=== PATIENT | male | born 1975 | race Caucasian/White ===

== ENCOUNTER 2017-12-27 12:05 | Emergency (ER) | payer OTHER, SELFPAY ==
[2017-12-27 12:09] VITALS: BP 138/90; PULSE 92; RESP 16; TEMP 36.6; O2SAT 98; BMI 28.0
[2017-12-27 13:10] VITALS: BP 131/87; PULSE 77; RESP 15; O2SAT 98
--- NOTE | 2017-12-27 13:29 | ED_ITS ---
HPI - GI Bleed General Chief complaint: GI Bleed Stated complaint: POOPING BRIGHT RED BLOOD Time Seen by Provider: 12/27/17 13:28 Source: patient Mode of arrival: ambulatory Limitations: no limitations History of Present Illness HPI Narrative: 42 y/o male here for evaluation of approx 24 hours of BRBPR. he sates that he also has a hx of diverticulitis and does have some left sided abdominal pain. no fevers, no urinary sx, not painful to have BM's. has a hx of hemorrhoids but does not feel like that is what is gong on now. not on anticoagulation. Related Data Home Medications Medication Instructions Recorded Confirmed acetaminophen [Tylenol] 650 mg PO Q4HP #0 05/10/16 12/27/17 melatonin 5 mg PO HSP PRN #0 05/10/16 12/27/17 naproxen sodium [Aleve] 220 mg PO BID #0 05/10/16 12/27/17 calcium carbonate [Tums] 1 tab PO PRN PRN 12/27/17 12/27/17 calcium carbonate-mag hydroxid 1 tab PO PRN PRN 12/27/17 12/27/17 [Rolaids] Allergies Allergy/AdvReac Type Severity Reaction Status Date / Time bupropion [From WELLBUTRIN] Allergy Unknown MIGRAINE Unverified 06/28/17 12:12 Review of Systems Constitutional Denies fatigue, Denies fever(s) and Denies headache(s) ENT Ears, Nose, Mouth, and Throat: Denies vertigo, Denies dizziness and Denies headache(s) Cardiovascular Denies chest pain and Denies dyspnea Respiratory Denies dyspnea Gastrointestinal Gastrointestinal: Reports abdominal pain, Reports hematochezia, Denies cramping , Denies diarrhea, Denies nausea and Denies vomiting Genitourinary Denies dysuria Integumentary/Breasts Denies pruritus Neurologic Denies confusion, Denies vertigo, Denies dizziness and Denies headache(s) Psychiatric Denies confusion Endocrine Denies fatigue Hematologic/Lymphatic Denies easy bleeding and Denies easy bruising PFSH Surgical History History of third molar tooth extraction Status post myringotomy with insertion of tube Status post tonsillectomy and adenoidectomy Family History Child Age: 9 Autistic disorder, active Grandfather Age: 89 Heart disease Social History Smoking Status: Current every day smoker Exam Initial Vital Signs Initial Vital Signs: Vital Signs Temperature 97.9 F 12/27/17 12:09 Pulse Rate 92 H 12/27/17 12:09 Respiratory Rate 16 12/27/17 12:09 Blood Pressure 138/90 12/27/17 12:09 Pulse Oximetry 98 12/27/17 12:09 Const General: cooperative, healthy appearing, comfortable, well developed, well groomed and No acute distress Orientation: alert, awake and oriented x3 HENMT Head: normal to inspection and normocephalic Resp Effort & Inspection: normal respiratory effort Auscultation: clear to auscultation bilaterally Cardio Rate: regular rate Rhythm: regular rhythm GI Inspection: non-distended Palpation: soft, No firm and No tender Rectal Exam: visual inspection normal, normal sphincter tone, No abnormal stool , No fecal impaction, No fissure, heme positive stool and No lesions Skin Lesions: no lesions Rashes: no rashes Neuro General: alert, awake and oriented x3 Extrem General: normal to inspection and capillary refill normal Course Orders Ordered: Discontinued Medications Sodium Chloride (Normal Saline 0.9%) 1,000 mls @ 1,000 mls/hr IV BOLUS ONE Stop: 12/27/17 14:43 Last Infusion: 12/27/17 15:13 Dose: 0 mls/hr Admin: 12/27/17 14:03 Dose: 1,000 mls/hr Vital Signs - 8 hr 12/27/17 12:09 12/27/17 13:10 Temperature 97.9 F Pulse Rate 92 H 77 Respiratory Rate 16 15 Blood Pressure 138/90 Blood Pressure [Right Arm] 131/87 Pulse Oximetry 98 98 MDM - GI Bleed Lab Data Attestation: I reviewed the patient's lab results. Result diagrams: 12/27/17 13:53 12/27/17 13:53 Lab Results 12/27/17 12/27/17 Range/Units 13:53 13:53 WBC 9.5 (4.5-11.0) X10^3/uL RBC 5.10 (4.5-5.9) X10^6/uL Hgb 16.0 (13.5-17.5) g/dL Hct 46.4 (41-53) % MCV 90.9 (80-100) fL MCH 31.3 (26-34) PG MCHC 34.4 (30-36) % RDW 12.9 (11.6-14.8) % Plt Count 216 (150-400) X10^3/uL Neut % (Auto) 59.7 (50-75) % Lymph % (Auto) 29.5 (25-40) % [place] % (Auto) 6.1 (3-14) % Eos % (Auto) 4.2 H (2-4) % Baso % (Auto) 0.5 (0-2) % Neut # (Auto) 5700 (0900-8911) /uL Sodium 143 (137-145) mmol/L Potassium 3.7 (3.4-5.1) mmol/L Chloride 105 (98-107) mmol/L Carbon Dioxide 27 (22-32) mmol/L BUN 14 (9-20) mg/dL Creatinine 0.60 L (0.66-1.25) mg/dL Estimated GFR > 60.0 (>60) mL/min BUN/Creatinine Ratio 23.3 H (6-22) Glucose 92 (70-100) mg/dL Calcium 9.5 (8.4-10.2) mg/dL Total Bilirubin 0.7 (0.2-1.3) mg/dL AST 31 (17-59) IU/L ALT 38 (21-72) IU/L Alkaline Phosphatase 72 (38-126) U/L Total Protein 7.3 (6.3-8.2) g/dL Albumin 4.6 (3.5-5.0) g/dL Globulin 2.7 (1.7-4.1) g/dL Albumin/Globulin Ratio 1.7 (1.0-2.8) Lipase 85 (23-300) U/L Imaging Data CT scan - abdomen: Radiologist's impression: PROCEDURE: CT ABDOMEN PELVIS W CON INDICATIONS: Lower abdominal plain with rectal bleeding TECHNIQUE: After the administration of intravenous contrast, 5 mm thick sections acquired from the diaphragm to the symphysis. 5 mm coronal and sagittal reformats were acquired. For radiation dose reduction, the following was used: automated exposure control, adjustment of mA and/or kV according to patient size. COMPARISON: None. FINDINGS: Image quality: Excellent. ABDOMEN: Lung bases: Lung bases are clear. Heart size is normal. Solid organs: Liver is normal in size and enhancement. Gallbladder appears normal. Biliary system is non dilated. Pancreas enhances normally. Spleen is normal in size and enhancement. No adrenal nodules. Kidneys demonstrate normal size and enhancement, without hydronephrosis. Peritoneum and bowel: Bowel loops demonstrate normal wall thickness and caliber. No free fluid or air. Nodes and vessels: No retroperitoneal or mesenteric adenopathy by size criteria. Aorta and inferior vena cava are normal in size. Miscellaneous: No ventral hernias. PELVIS: Genitourinary: Bladder wall thickness is normal. Miscellaneous: No inguinal hernias or adenopathy. Sigmoid diverticulosis without acute diverticulitis. Bones: No suspicious bony lesions. No vertebral body compression fractures. IMPRESSION: Sigmoid diverticulosis without acute diverticulitis. Dictated by: Markell Gloria M.D. on 12/27/2017 at 14:56 Approved by: Markell Gloria M.D. on 12/27/2017 at 14:[address] [facility] Narrative Medical decision making narrative: has a benigh abd, non-toxic, not febrile, has diverticulosis but no diverticvulitis. has a soft ABD, I suspect a diverticular bleed, no indication for urgent surgical consult, discussed this with the patient. We discussed return precautions , no indication for ABX. pt was instructed to talk with his primary care provider to discuss indications for sope. he expressed understanding and agreement with plan. Discharge Plan Departure Patient Disposition: Home Clinical Impression: Rectal bleeding, Diverticulosis Discharge Date/Time: 12/27/17 15:24 Interventions: ED Discharge Assessment Last Done: 12/27/17 15:23 Instructions: DI for Rectal Bleeding, DI for Diverticulosis Activity Restrictions/Additional Instructions: Recommend that you contact your insurance company to establish care with a primary care doctor. Return to the emergency department for any new or worsening symptoms Prescriptions: No Action acetaminophen [Tylenol] 325 mg Tablet 650 mg PO Q4HP Qty: 0 RF: 0 naproxen sodium [Aleve] 220 MG capsule 220 mg PO BID Qty: 0 RF: 0 melatonin 5 MG tablet 5 mg PO HSP PRN (Reason: Sleep) Qty: 0 RF: 0 calcium carbonate-mag hydroxid [Rolaids] 550-110 mg Tablet,Chewable 1 tab PO PRN PRN (Reason: Acid Reflux) RF: 0 calcium carbonate [Tums] 200 mg calcium (500 mg) Tablet,Chewable 1 tab PO PRN PRN (Reason: Acid Reflux) RF: 0 Stand Alone Forms: Work/School Restrictions
--- NOTE | 2017-12-27 13:45 | DI.CT.S_ITS ---
PROCEDURE: CT ABDOMEN PELVIS W CON INDICATIONS: Lower abdominal plain with rectal bleeding TECHNIQUE: After the administration of intravenous contrast, 5 mm thick sections acquired from the diaphragm to the symphysis. 5 mm coronal and sagittal reformats were acquired. For radiation dose reduction, the following was used: automated exposure control, adjustment of mA and/or kV according to patient size. COMPARISON: None. FINDINGS: Image quality: Excellent. ABDOMEN: Lung bases: Lung bases are clear. Heart size is normal. Solid organs: Liver is normal in size and enhancement. Gallbladder appears normal. Biliary system is non dilated. Pancreas enhances normally. Spleen is normal in size and enhancement. No adrenal nodules. Kidneys demonstrate normal size and enhancement, without hydronephrosis. Peritoneum and bowel: Bowel loops demonstrate normal wall thickness and caliber. No free fluid or air. Nodes and vessels: No retroperitoneal or mesenteric adenopathy by size criteria. Aorta and inferior vena cava are normal in size. Miscellaneous: No ventral hernias. PELVIS: Genitourinary: Bladder wall thickness is normal. Miscellaneous: No inguinal hernias or adenopathy. Sigmoid diverticulosis without acute diverticulitis. Bones: No suspicious bony lesions. No vertebral body compression fractures. IMPRESSION: Sigmoid diverticulosis without acute diverticulitis. Dictated by: Markell Gloria M.D. on 12/27/2017 at 14:56 Approved by: Markell Gloria M.D. on 12/27/2017 at 14:58
[2017-12-27 14:00] VITALS: BP 140/88; PULSE 73; RESP 14; O2SAT 98
[2017-12-27 14:03] LABS: Add Manual Diff / Slide Review NO; Basophils Percent Auto 0.5 % (0-2); Eosinophils Percent Auto 4.2 % (2-4); Hematocrit 46.4 % (41-53); Lymphocytes Percent Auto 29.5 % (25-40); Mean Corpuscular HGB Conc 34.4 % (30-36); Mean Corpuscular Hemoglobin 31.3 PG (26-34); Mean Corpuscular Volume 90.9 fL (80-100); Monocytes Percent Auto 6.1 % (3-14); Neutrophils Absolute Auto 5700 /uL (3000-5900); Neutrophils Percent Auto 59.7 % (50-75); Platelet Count 216 X10^3/uL (150-400); Red Cell Distribution Width 12.9 % (11.6-14.8); White Blood Cell Count 9.5 X10^3/uL (4.5-11.0)
[2017-12-27] MEDS: SODIUM CHLORIDE 0.9% 1,000 ML 1000 ML IV (14:03)
[2017-12-27 14:15] LABS: Alanine Aminotransferase 38 IU/L (21-72); Albumin 4.6 g/dL (3.5-5.0); Albumin Globulin Ratio 1.7 (1.0-2.8); Alkaline Phosphatase 72 U/L (38-126); Aspartate Aminotransferase 31 IU/L (17-59); BUN Creatinine Ratio 23.3 (6-22); Bilirubin Total 0.7 mg/dL (0.2-1.3); Blood Urea Nitrogen 14 mg/dL (9-20); Calcium 9.5 mg/dL (8.4-10.2); Carbon Dioxide 27 mmol/L (22-32); Chloride 105 mmol/L (98-107); Estimated Glomerular Filt Rate > 60.0 mL/min (>60); Globulin 2.7 g/dL (1.7-4.1); Glucose 92 mg/dL (70-100); HEMOLYSIS < 15 (0-50); Lipase 85 U/L (23-300); Potassium 3.7 mmol/L (3.4-5.1); Sodium 143 mmol/L (137-145); Total Protein 7.3 g/dL (6.3-8.2)
== END 2017-12-27 15:24 | disposition home or self-care (01) ==
PROVIDERS: Emergency Provider Emergency Medicine
DX: K57.90 Diverticulosis of intestine, part unspecified, without perforation or abscess without bleeding (principal); K62.5 Hemorrhage of anus and rectum
CPT/HCPCS: 36591; 74177; 80053; 83690; 85025; 96360; 99283; 99285; Q9967

== ENCOUNTER 2018-05-28 12:31 | Emergency (ER) | payer OTHER, SELFPAY ==
--- NOTE | 2018-05-28 14:04 | PC.NURSE ---
not in wr when called 1400
== END 2018-05-28 14:27 | disposition left against medical advice (07) ==
PROVIDERS: Emergency Provider Emergency Medicine; Family Provider Family Medicine; PCP Family Medicine
CPT/HCPCS: 99281

== ENCOUNTER → 2018-05-29 12:26 | Outpatient (CLI) | payer OTHER, SELFPAY ==
--- NOTE | 2018-05-29 12:37 | DI.CT.S_ITS ---
PROCEDURE: CT ABDOMEN PELVIS W CON INDICATIONS: Bloody stools, lower abdominal pain, bloody stools TECHNIQUE: After the administration of intravenous contrast, 5 mm thick sections acquired from the diaphragm to the symphysis. 5 mm coronal and sagittal reformats were acquired. For radiation dose reduction, the following was used: automated exposure control, adjustment of mA and/or kV according to patient size. COMPARISON: [facility], CT, CT ABDOMEN PELVIS W CON, 12/27/2017, 14:33. FINDINGS: Image quality: Excellent. ABDOMEN: Lung bases: Lung bases are clear. Heart size is normal. Solid organs: Liver is normal in size and enhancement. Gallbladder appears normal. Biliary system is non dilated. Pancreas enhances normally. Spleen is normal in size and enhancement. No adrenal nodules. Kidneys demonstrate normal size and enhancement, without hydronephrosis. Peritoneum and bowel: Bowel loops demonstrate normal wall thickness and caliber. No free fluid or air. Nodes and vessels: No retroperitoneal or mesenteric adenopathy by size criteria. Aorta and inferior vena cava are normal in size. Miscellaneous: No ventral hernias. PELVIS: Genitourinary: Bladder wall thickness is normal. Miscellaneous: No inguinal hernias or adenopathy. Normal appendix right lower quadrant. Mild to moderate diverticulosis is present at the sigmoid colon. No acute diverticulitis is found, however. Bones: No suspicious bony lesions. No vertebral body compression fractures. IMPRESSION: Mild to moderate sigmoid diverticulosis, no definite acute diverticulitis. Normal appendix. A definite source of GI bleeding is not found by this examination. Specifically a malignant appearing colonic mass is not suspected. The study is limited by stool within the colon, however, but by current imaging chronic diverticulosis/episodic diverticulitis is considered a likely source of GI bleeding in this patient than underlying neoplasm. Dictated by: Markell Gloria M.D. on 05/29/2018 at 14:45 Approved by: Markell Gloria M.D. on 05/29/2018 at 14:47
[2018-05-29 13:19] LABS: Add Manual Diff / Slide Review NO; Basophils Absolute Auto 100 /uL (0-100); Basophils Percent Auto 0.9 % (0-2); Eosinophils Absolute Auto 400 /uL (0-450); Eosinophils Percent Auto 5.7 % (2-4); Hematocrit 48.1 % (41-53); Hemoglobin 16.7 g/dL (13.5-17.5); Lymphocytes Absolute Auto 2100 /uL (1100-4500); Lymphocytes Percent Auto 31.2 % (25-40); Mean Corpuscular HGB Conc 34.8 % (30-36); Mean Corpuscular Hemoglobin 31.7 PG (26-34); Mean Corpuscular Volume 91.1 fL (80-100); Monocytes Absolute Auto 300 /uL (0-900); Monocytes Percent Auto 4.9 % (3-14); Neutrophils Absolute Auto 3800 /uL (1500-7000); Neutrophils Percent Auto 57.3 % (50-75); Platelet Count 212 X10^3/uL (150-400); Red Blood Cell Count 5.28 X10^6/uL (4.5-5.9); Red Cell Distribution Width 13.1 % (11.6-14.8); White Blood Cell Count 6.7 X10^3/uL (4.5-11.0)
[2018-05-29 14:13] LABS: Alanine Aminotransferase 32 IU/L (21-72); Albumin 4.5 g/dL (3.5-5.0); Albumin Globulin Ratio 1.7 (1.0-2.8); Alkaline Phosphatase 71 U/L (38-126); Aspartate Aminotransferase 23 IU/L (17-59); BUN Creatinine Ratio 21.7 (6-22); Bilirubin Total 0.5 mg/dL (0.2-1.3); Blood Urea Nitrogen 13 mg/dL (9-20); Calcium 9.3 mg/dL (8.4-10.2); Carbon Dioxide 26 mmol/L (22-32); Chloride 103 mmol/L (98-107); Cholesterol 185 mg/dL (140-199); Estimated Glomerular Filt Rate > 60.0 mL/min (>60); Globulin 2.7 g/dL (1.7-4.1); Glucose 97 mg/dL (70-100); HDL Cholesterol 49 mg/dL (40-60); HEMOLYSIS < 15 (0-50); LDL Cholesterol Calculated 115 mg/dL (<100); Sodium 139 mmol/L (137-145); Total Protein 7.2 g/dL (6.3-8.2); Triglycerides 104 mg/dL (35-150)
[2018-05-29 14:16] LABS: Appearance Urine UA CLEAR; Bilirubin Urine UA NEGATIVE (NEGATIVE); Color Urine UA YELLOW; Glucose Urine UA NEGATIVE (Negative); Ketones Urine UA NEGATIVE (NEGATIVE); Leukocyte Esterase Urine UA NEGATIVE (NEGATIVE); Nitrite Urine UA NEGATIVE (Negative); Occult Blood Urine UA TRACE-INTACT (Negative); Protein Urine UA NEGATIVE (Negative); Urobilinogen Urine UA 0.2 E.U./dL (0.2)
[2018-05-29 15:16] LABS: Folate 7.3 ng/mL (2.76-20.0); Vitamin B12 683 pg/mL (239-931)
[2018-05-29 15:41] LABS: Thyroid Stimulating Hormone 1.88 uIU/mL (0.47-4.68)
== END ==
PROVIDERS: Family Provider Family Medicine; PCP Family Medicine; Visit Provider Family Medicine
DX: K92.1 Melena (principal); R10.30 Lower abdominal pain, unspecified; K57.30 Diverticulosis of large intestine without perforation or abscess without bleeding; R41.3 Other amnesia; G45.9 Transient cerebral ischemic attack, unspecified; G43.909 Migraine, unspecified, not intractable, without status migrainosus; R53.82 Chronic fatigue, unspecified; R68.82 Decreased libido; Z13.220 Encounter for screening for lipoid disorders; Z13.29 Encounter for screening for other suspected endocrine disorder; Z51.81 Encounter for therapeutic drug level monitoring
CPT/HCPCS: 36415; 74177; 80053; 80061; 81003; 82607; 82746; 83655; 84403; 84443; 85025; Q9967

== ENCOUNTER 2019-05-23 12:26 | Emergency (ER) | payer OTHER, SELFPAY ==
[2019-05-23 12:53] VITALS: BP 171/110; PULSE 68; RESP 15; TEMP 37; O2SAT 98; BMI 26.9
--- NOTE | 2019-05-23 13:30 | PC.NURSE ---
Pt refused to keep collar on as it was causing him more pain than prior to it being applied. Informed pt of risks
[2019-05-23 13:55] VITALS: PULSE 61; RESP 18; O2SAT 98
--- NOTE | 2019-05-23 14:03 | DI.CT.S_ITS ---
PROCEDURE: CT HEAD/BRAIN WO CON INDICATIONS: Neck pain TECHNIQUE: Noncontrast 4.5 mm thick angled axial sections acquired from the foramen magnum to the vertex, with coronal and sagittal reformats. For radiation dose reduction, the following was used: automated exposure control, adjustment of mA and/or kV according to patient size. COMPARISON: None. FINDINGS: Image quality: Excellent. CSF spaces: Basal cisterns are patent. No extra-axial fluid collections. The ventricles are symmetric in size and shape. Brain: No intracranial bleeds or masses. There is cerebral volume loss for age, with resultant ventricular and sulcal prominence. There are periventricular and deep white matter chronic small vessel ischemic changes. There is intracranial internal carotid artery atherosclerosis. Skull and face: Calvarium and visualized facial bones appear intact, without suspicious lesions. Sinuses: Visualized sinuses and mastoids are clear. IMPRESSION: No trauma found. Dictated by: Markell Gloria M.D. on 05/23/2019 at 15:01 Approved by: Markell Gloria M.D. on 05/23/2019 at 15:02
--- NOTE | 2019-05-23 14:04 | DI.CT.S_ITS ---
PROCEDURE: CT CERVICAL SPINE WO CON INDICATIONS: Neck pain TECHNIQUE: Noncontrast 3 mm thick sections acquired from the skull base to the T4 level. Sagittal and coronal reformats were then constructed. For radiation dose reduction, the following was used: automated exposure control, adjustment of mA and/or kV according to patient size. COMPARISON: None. FINDINGS: Image quality: Excellent. Bones: No fractures or dislocations. Visualized superior ribs are intact. Soft tissues: Prevertebral soft tissues are normal in thickness. No paravertebral hematomas. No apical pneumothoraces. IMPRESSION: Mid and lower cervical degenerative disc disease, no fracture or traumatic subluxation found. Dictated by: Markell Gloria M.D. on 05/23/2019 at 15:02 Approved by: Markell Gloria M.D. on 05/23/2019 at 15:03
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
[2019-05-23 15:19] VITALS: BP 154/111; PULSE 56; RESP 18; O2SAT 100
[2019-05-23] MEDS: KETOROLAC 60 MG/2 ML VIAL 30 MG IM (15:37)
[2019-05-23 15:40] VITALS: BP 160/101; PULSE 56; RESP 16; O2SAT 100
== END 2019-05-23 15:48 | disposition home or self-care (01) ==
PROVIDERS: Emergency Provider Nurse Practitioner; Family Provider Family Medicine; PCP Family Medicine
DX: M54.2 Cervicalgia (principal); M62.838 Other muscle spasm
CPT/HCPCS: 70450; 72125; 96372; 99283; 99284; J1885

== ENCOUNTER → 2019-05-31 12:27 | Outpatient (CLI) | payer OTHER, SELFPAY ==
[2019-05-31 14:57] LABS: Urine N gonorrhoeae NOT DETECTED
[2019-05-31 14:58] LABS: Urine Chlamydia NOT DETECTED
[2019-05-31 15:16] LABS: HIV 1 & 2 Ab/Ag 4th Gen Combo NEGATIVE (NEGATIVE)
[2019-06-01 05:23] LABS: HBsAg Screen Negative (Negative); Hepatitis A Antibody IgM Negative (Negative); Hepatitis B Core Antibody IgM Negative (Negative); Hepatitis C Antibody <0.1 s/co ratio (0.0-0.9)
[2019-06-01 08:09] LABS: RPR Screen Non Reactive (Non Reactive)
[2019-06-04 17:45] LABS: HSV 1 PCR Not Detected copies/mL (Not Detected); HSV 2 PCR Not Detected copies/mL (Not Detected)
== END ==
PROVIDERS: Family Provider Family Medicine; PCP Family Medicine; Referring Provider Family Medicine; Visit Provider Family Medicine
DX: Z11.3 Encounter for screening for infections with a predominantly sexual mode of transmission (principal); A64 Unspecified sexually transmitted disease
CPT/HCPCS: 36415; 80074; 86592; 87389; 87491; 87530; 87591

== ENCOUNTER → 2019-09-09 08:49 | Outpatient (CLI) | payer OTHER, SELFPAY ==
--- NOTE | 2019-09-09 08:52 | DI.RAD.S_ITS ---
PROCEDURE: XR HAND RT MIN 3V INDICATIONS: Right posterior MCP thumb joint pain TECHNIQUE: 3 views of the hand(s) acquired. COMPARISON: None. FINDINGS: Bones: No fractures or dislocations. Carpal bones are normally aligned. No suspicious bony lesions. Soft tissues: No suspicious soft tissue calcifications. IMPRESSION: No gross acute right hand fracture or dislocation. Dictated by: Eric Ennis M.D. on 09/09/2019 at 9:19 Approved by: Eric Ennis M.D. on 09/09/2019 at 9:19
== END ==
PROVIDERS: Family Provider Family Medicine; PCP Family Medicine; Referring Provider Nurse Practitioner; Visit Provider Nurse Practitioner
DX: M25.541 Pain in joints of right hand (principal)
CPT/HCPCS: 73130

== ENCOUNTER → 2019-10-18 08:36 | Outpatient (CLI) | payer OTHER, SELFPAY ==
--- NOTE | 2019-10-18 08:39 | DI.MRI.S_ITS ---
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 COMPARISON: [facility], CR, XR HAND RT MIN 3V, 09/09/2019, 8:52. FINDINGS: Image quality: Excellent. Bones: The bones are normally aligned, without marrow contusions or fractures. No intra-osseous lesions. First carpometacarpal joint: On sagittal images, the dorsal radial ligament and posterior oblique ligament appear intact. The intermetacarpal ligament between the 1st and 2nd metacarpal bases also appears intact. On the volar aspect, the deep and superficial layers of the anterior oblique ligament appear intact. First metacarpophalangeal joint: The proper and accessory components of the radial collateral ligament appears intact, along with overlying fibers of the abductor pollicis brevis tendon. There is signal change in disrupted appearance of the proximal ulnar collateral ligament for example image 15-16/7. The aponeurosis of the adductor pollicis muscle appears normal. The volar plate appears intact on sagittal images, situated between the radial and ulnar sesamoids. Thenar muscles: The superficial abductor pollicis longus muscle appears normal, with tendon inserting on the radial base of the first proximal phalanx. The opponens pollicis muscle also appears normal, inserting on the first metacarpal shaft. The flexor pollicis brevis muscle appears normal, with tendon inserting on the radial sesamoid and first proximal phalanx. The oblique and transverse heads of the adductor pollicis muscle appear normal, inserting on the ulnar sesamoid and proximal phalanx as part of the adductor aponeurosis. Flexor pollicis longus tendon: Tendon fibers appear intact, coursing between the thenar eminence muscles and the adductor pollicis muscle, and inserting on the volar base of the distal phalanx. The first annular keaton at the level of the first MCP joint appears intact, intimate with the sesamoids. The second annular keaton at the level of interphalangeal joint also appears intact. The oblique annular keaton between the 1st and 2nd annular pulleys appears intact, with ulnar proximal attachment intimate with the adductor aponeurosis. The variable annular keaton also appears intact between the first annular and oblique annular pulleys. Extensor tendons: The extensor pollicis brevis tendon appears intact . The extensor pollicis longus tendon appears mildly thickened and there is adjacent and intrasubstance T2 hyperintensity. The sagittal band at the level of the first MCP joint appears intact. The abductor pollicis longus tendon slips appear intact at the radial aspect of the proximal phalanx, proximal to the abductor pollicis brevis tendon insertion. Miscellaneous: No ganglion cysts. IMPRESSION: Sprain/rupture of the proximal ulnar collateral ligament at the 1st MCP joint Extensor pollicis longus strain. No complete rupture. Adjacent soft tissue edema Dictated by: Eder Gonzalez M.D. on 10/18/2019 at 14:01 Approved by: Eder Gonzalez M.D. on 10/18/2019 at 14:07
== END ==
PROVIDERS: Family Provider Family Medicine; PCP Family Medicine; Referring Provider Family Medicine; Visit Provider Family Medicine
DX: S63.418A Traumatic rupture of collateral ligament of other finger at metacarpophalangeal and interphalangeal joint, initial encounter (principal); X58.XXXA Exposure to other specified factors, initial encounter
CPT/HCPCS: 73218

== ENCOUNTER → 2019-10-25 10:56 | Outpatient (CLI) | payer OTHER, SELFPAY ==
[2019-10-25 11:38] LABS: Add Manual Diff / Slide Review NO; Basophils Absolute Auto 100 /uL (0-100); Basophils Percent Auto 0.7 % (0-2); Eosinophils Absolute Auto 600 /uL (0-450); Eosinophils Percent Auto 6.7 % (2-4); Hematocrit 49.3 % (41-53); Hemoglobin 17.4 g/dL (13.5-17.5); Lymphocytes Absolute Auto 2600 /uL (1100-4500); Lymphocytes Percent Auto 29.2 % (25-40); Mean Corpuscular HGB Conc 35.4 % (30-36); Mean Corpuscular Hemoglobin 32.5 PG (26-34); Mean Corpuscular Volume 91.7 fL (80-100); Monocytes Absolute Auto 600 /uL (0-900); Monocytes Percent Auto 6.6 % (3-14); Neutrophils Absolute Auto 5000 /uL (1500-7000); Neutrophils Percent Auto 56.8 % (50-75); Platelet Count 219 X10^3/uL (150-400); Red Blood Cell Count 5.37 X10^6/uL (4.5-5.9); Red Cell Distribution Width 13.3 % (11.6-14.8); White Blood Cell Count 8.8 X10^3/uL (4.5-11.0)
[2019-10-25 12:19] LABS: Alanine Aminotransferase 45 IU/L (<50); Albumin 4.8 g/dL (3.5-5.0); Albumin Globulin Ratio 1.8 (1.0-2.8); Alkaline Phosphatase 76 U/L (38-126); Aspartate Aminotransferase 33 IU/L (17-59); Bilirubin Total 0.8 mg/dL (0.2-1.3); Blood Urea Nitrogen 13 mg/dL (9-20); Carbon Dioxide 29 mmol/L (22-32); Chloride 102 mmol/L (98-107); Cholesterol 224 mg/dL (140-199); Estimated Glomerular Filt Rate > 60.0 mL/min (>60); Globulin 2.7 g/dL (1.7-4.1); Glucose 114 mg/dL (70-100); HDL Cholesterol 42 mg/dL (40-60); HEMOLYSIS < 15 (0-50); LDL Cholesterol Calculated 148 mg/dL (<100); Potassium 4.5 mmol/L (3.4-5.1); Sodium 138 mmol/L (137-145); Total Protein 7.5 g/dL (6.3-8.2); Triglycerides 172 mg/dL (35-150)
[2019-10-25 12:48] LABS: Thyroid Stimulating Hormone 0.925 uIU/mL (0.47-4.68)
== END ==
PROVIDERS: Family Medicine; Family Provider Family Medicine; PCP Family Medicine; Referring Provider Family Medicine; Visit Provider Family Medicine
DX: I10 Essential (primary) hypertension (principal)
CPT/HCPCS: 36415; 80053; 80061; 84443; 85025

== ENCOUNTER 2019-11-08 09:28 | Outpatient (RCR) | payer OTHER, SELFPAY ==
--- NOTE | 2019-11-08 17:26 | PT.OIE ---
Current Diagnoses Muscle weakness (generalized) (11/08/19) Ulnar collateral ligament sprain of unspecified elbow, initial encounter (11/08/19) Past Medical History (Last Updated 11/05/19 @ 10:13 by Eduardo Hastings DO) Ankle pain (Chronic ~1993) Brain damage (Chronic ~2011) Chicken pox (Resolved ~1981) Depression (Chronic ~2011) Diverticular disease (Chronic ~2017) Dysuria (Acute) External hemorrhoids (Acute) Foot pain (Chronic ~1993) GERD (gastroesophageal reflux disease) (Chronic ~1998) GI bleeding (Chronic ~2017) Hearing loss (Chronic ~1993) Hemorrhoid (Chronic ~1998) Hyperglycemia (Acute) Hyperlipidemia (Acute) Joint pain (Chronic ~1999) Left inguinal hernia (Acute) Low testosterone (Chronic) Migraines (Chronic ~2011) Post traumatic stress disorder (PTSD) (Chronic ~2011) Restless leg syndrome (Chronic ~2011) Sleep apnea (Chronic ~1993) Sprain of right thumb (Acute) Thumb pain (Acute) Ulnar collateral ligament sprain (Acute) Vertigo (Resolved ~2011) Past Surgical History (Last Reviewed 10/31/19 @ 11:04 by Hieu Conde MD) Anesthesia (Resolved) History of third molar tooth extraction Inguinal hernia, right (Resolved ~10/2007) Status post myringotomy with insertion of tube Status post tonsillectomy and adenoidectomy Visit Care Team Role Provider Type Eduardo Hastings DO Attending Provider Physician Primary Care Provider Referring Provider Specialty: [facility] Address: [address] [place] [address] Email: [email or web address] Physical Therapy Initial Evaluation PT-OP-A Visit Information Start: 11/08/19 08:09 Freq: Status: Active Protocol: Document 11/08/19 09:50 LRN (Rec: 11/08/19 10:48 LRN [id number]) Out-Patient Physical Therapy Visit Information Visit Information Visit Type Initial Evaluation Visit Start Time 09:50 Visit Stop Time 10:42 Total Visit Minutes 52 Visit Number 1 Evaluation Information Evaluation Date 11/08/19 Precautions Precautions L & R thumb sprain. PT-OP-B Current Condition Start: 11/08/19 08:09 Freq: Status: Active Protocol: Document 11/08/19 09:50 LRN (Rec: 11/08/19 10:48 LRN [id number]) Current Condition History of Current Condition Onset Date 1.5 months ago History of Current Condition R MCP jt pain. Pt is R handed . 1.5 months ago was trying to rehome his dog and was trying to break up a dog fight and he grabbed with his R hand and felt a pop/snap/ crunch in his thumb and did it twice in a row. 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 Pain is Distal of the 1st phalanx of R thumb Prior Treatments and Tests MRI and was found to have ruptured a tendon and ligament . (per report: Sprain/rupture of the proximal ulnar collateral ligament at the 1st MCP joint Extensor pollicis longus strain. No complete rupture. Adjacent soft tissue edema) Future Testing and Treatments Planned MD follow up visit is March 2020 Treatment Goals Patient/Caregiver Goals Pt goal is to get 100% better to be able to grasp/lift 0-110 # piece of steel. 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 Dress (pull up pants and underwear and button a shirt) without difficulty and pain. Regain strength in hand to work on home project ( restoring a car). Cooking/cutting/flipping food without difficulty or pain. difficulty dressing, bathing, toileting, feeding self. 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 Baseline Function- Recreation/Hobbies Restores cars. Baseline Function- Other Painfree dressing, bathing, toileting, feeding self. 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 Dress (pull up pants and underwear and button a shirt) without difficulty and pain. Regain strength in hand to work on home project ( restoring a car). Cooking/cutting/flipping food without difficulty or pain. difficulty dressing, bathing, toileting, feeding self. Functional Limitations- Work/School Work place is trying to accommodate for his dysfunction for now. Functional Limitations- Recreation/ Not able to restore his car. Hobbies Personal Factors Other Personal Factors That May Effect Per pt (verbally and with Therapy/Recovery intake form), Inguinal repair surgery scheduled 11/26/19. Controlled HBP, Depression, Neck pain, Memory loss. Loss of spouse 06/2019. PT-OP-C Subjective Start: 11/08/19 08:09 Freq: Status: Active Protocol: Document 11/08/19 09:50 LRN (Rec: 11/08/19 10:48 LRN [id number]) Patient Questionnaires Quick Dash- Upper Extremity Quick Dash UE Score 57.5 (one question unanswered) Quick Dash UE Impairment 40 to 59% Impaired (Score 40- 59) OP-PT Pain Assessment Location R thumb at MCP jt Pain Location Details R thumb @, & adjacent areas of MCP jt (verbally 9/10 at worst). Intensity 6 Scale Used Numeric (0 - 10) Description Aching,Dull,Sharp,Shooting Description- Other Constant dull ache, sharp/ shooting when hitting it Frequency Constant Pain Aggravating Factors Changing Position,ADL's, Activity,Exercise,Lifting Pain Alleviating Factors Cold,Heat,Medication Other Pain Alleviating Factors Tylenol Comments Pain Comments Tender around the R MCP jt. PT-OP-H Neuro Start: 11/08/19 08:09 Freq: Status: Active Protocol: Document 11/08/19 09:50 LRN (Rec: 11/08/19 16:34 LRN [id number]) Sensation Evaluation Gross Sensation Gross Sensation WNL PT-OP-J Posture/Palpation/Skin Start: 11/08/19 08:09 Freq: Status: Active Protocol: Document 11/08/19 09:50 LRN (Rec: 11/08/19 10:48 LRN [id number]) Posture Evaluation Position R thumb Evaluation View Anterior Comments Posture Comments See below for R MCP jt. R thumb IP joint shows valgus protrusion on the ulnar side. Palpation Assessment Location R MCP jt Palpation Location R thumb MCP jt Palpation Findings Tenderness Palpation Details 2nd phalanx proximally is displaced in the palmar direction. Very tender at R thumb IP joint. Tender with palpation at R thumb IP jt ulnar side. Tender radial side of R thumb MCP jt. PT-OP-K Range of Motion Start: 11/08/19 08:09 Freq: Status: Active Protocol: Document 11/08/19 09:50 LRN (Rec: 11/08/19 16:34 LRN [id number]) Wrist Goniometric Range of Motion Wrist Right Wrist ROM WFL No Flexion Active (degrees) 60 Extension Active (degrees) 58 Ulnar Deviation Active (degrees) 29 Radial Deviation Active (degrees) 22 Left Wrist ROM WFL Yes Flexion Active (degrees) 64 Extension Active (degrees) 74 Ulnar Deviation Active (degrees) 40 Radial Deviation Active (degrees) 34 Thumb Goniometric Range of Motion Thumb Right Thumb ROM WFL No MCP Flexion Active (degrees) 54 MCP Extension Active (0 degrees) 0 H IP Flexion Active (degrees) 50 CMC Extension Active (degrees) 36 Left Thumb ROM WFL Yes MCP Flexion Active (degrees) 62 MCP Extension Active (0 degrees) 0 H IP Flexion Active (degrees) 70 IP Extension Active (degrees) 0 CMC Extension Active (degrees) 60 Thumb ROM Limitations Thumb Range of Motion Limitations Pain Comments R thumb: Opposition to 5th digit base: Lacks 2.5 cm. Thumb AB: 36 degs right; 54 degs left PT-OP-L Special Tests Start: 11/08/19 08:09 Freq: Status: Active Protocol: Document 11/08/19 09:50 LRN (Rec: 11/08/19 16:34 LRN [id number]) Special Tests Wrist/Hand Special Tests Edilberto's Test Results R thumb: Positive Comments Indicates De Quervain's tendonitis, from extensor pollicis brevis and abductor pollicis longus. PT-OP-M Strength Start: 11/08/19 08:09 Freq: Status: Active Protocol: Document 11/08/19 09:50 LRN (Rec: 11/08/19 10:48 LRN [id number]) Wrist Strength Wrist Manual Muscle Testing Right Comments Generally 5/5. Left Flexion (C7) 5 Normal Extension (C6) 5 Normal Ulnar Deviation 5 Normal Comments Strength tested without pressure on the thumb. RD was deferred due to pain with pressure near the radial side. Finger/Thumb Strength Finger Manual Muscle Testing Left Thumb Comments Generally 5/5. Right Thumb Comments Deferred due to pain at MCP joint. Hand Canoe Maker/Pinch Strength Hand Dominance Hand Dominance Right Hand Strength Right Canoe Maker (lbs) 20 Comments Gripping dynomometer with pressure on the mid 2nd phalanx to simulate positioning for his job. Left Canoe Maker (lbs) 60 PT-OP-Q Treatments Start: 11/08/19 08:09 Freq: Status: Active Protocol: Document 11/08/19 09:50 LRN (Rec: 11/08/19 16:34 LRN [id number]) Self-Care/Home Management Treatment Education Patient Education Pain Management Other Education Discussed results of Evaluation. Recommended pt use cryotherapy to the R thumb (8-10 minutes) if pain later today. I/S to not place ice directly on the skin. Pt noted he has been using cold packs for pain management. PT-OP-T Assessment and Plan Start: 11/08/19 08:09 Freq: Status: Active Protocol: Document 11/08/19 09:50 LRN (Rec: 11/08/19 10:48 LRN [id number]) Physical Therapy Assessment Rehab Potential Rehabilitation Potential Fair Evaluation Complexity Number of Personal Factors/Comorbidities 3 or More Number of Body Systems Impaired 4 or More Clinical Presentation at Evaluation Evolving Impairments Impairments Activity Tolerance,Pain,ROM, Soft Tissue Mobility,Strength Goals Four Impairment Decreased Canoe Maker strength (in lbs: Right: 20, 20, 20; Left: 60, 60, 60) Short Term Goal (STG) (Gripping dynomometer with pressure on the mid 2nd phalanx to simulate positioning for his job.) Improve Canoe Maker strength by 20#, and will be able to dress ( pull up pants and underwear and button a shirt) without difficulty and pain. STG Duration 01/17/20 Prison Goal (LTG) Pt will be able to return to prior level of function of grasping/lifting steel pieces (0-110#). LTG Duration 03/07/20 Three Impairment Pain with functional activities due to R hand/wrist weakness. Short Term Goal (STG) Pt will be able to cook, cut his food, bathe, and perform toileting activities without difficulty or pain. STG Duration 01/17/20 Prison Goal (LTG) Regain strength in R hand to work on home project ( restoring a car). LTG Duration 03/07/20 Two Impairment Decreased R thumb and wrist AROM Short Term Goal (STG) Pt will be able to perform the motions of flipping food and will be able to feed self without difficulty or pain. 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 LTG Duration 03/07/20 One Impairment Lacks appropriate self care HEP. Short Term Goal (STG) Pt will be on a self care HEP of initial R hand/wrist strengthening exercises. STG Duration 11/22/19 Prison Goal (LTG) Pt will be independent with a self care HEP. LTG Duration 03/07/20 Assessment Summary Assessment Pt presents with instability of the R thumb MCP jt due to sprain/rupture of the proximal ulnar collateral ligament. He is limited with functional use of his R dominant had due to pain at the thumb MCP jt with most all functional use. I would recommend a consult with a hand specialist for consultation due to the physical requirement needed of his hands for his job. He could benefit from assessment by a hand specialist to also give recommendations on a thumb splint that he could possibly wear while at work. The pt will benefit from skilled physical therapy for a course of rehabilitation for thumb care and strengthening exercises with placement on a HEP for self care. It should be noted that the pt is planning on having a planned inguinal repair surgery 11/26/19 ; therefore therapy will be interrupted for 6-8 weeks while he recovers from the surgery; therefore focus will be on placing the pt onto a HEP to start. Physical Therapy Plan Frequency and Duration Frequency of Treatment 2x/Week Plan of Care Start Date 11/08/19 Plan of Care End Date 03/07/20 Therapeutic Interventions Therapeutic Interventions Home Exercise Program,Joint Mobilizations,Manual Therapy, Patient/Caregiver Education, Self-Care/Home Management,Soft Tissue Mobilization,Taping, Therapeutic Exercises Modalities Cold Pack/Ice Massage,Electric Stimulation,Hot Packs, Iontophoresis,Ultrasound Other Therapeutic Interventions Iontophoresis with 4 mg/mL of Dexamethasone with Sodium Phosphate. Next Visit Focus/Plan Next Note Type Treatment Note Next Visit Plan HEP for R thumb, wrist, finger strengthening and stabilization for self care after his 11/26/19 hernia repair surgery. On his return after his surgery, continue R thumb /hand/wrist/elbow strengthening and stabilization & ROM exercises. Ending with CP.
--- NOTE | 2019-11-08 17:26 | PT.OPPOC ---
Physical, Occupational & Speech Therapy At [facility] Current Diagnoses Muscle weakness (generalized) (11/08/19) Ulnar collateral ligament sprain of unspecified elbow, initial encounter (11/08/19) Visit Care Team Role Provider Type Eduardo Hastings DO Attending Provider Physician Primary Care Provider Referring Provider Specialty: [facility] Practice Address: [address] [place] [address], [facility] Email: 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 STG Duration 01/17/20 Rn Iv Therapy Goal (LTG) Pt will be able to return to prior level of function of grasping/lifting steel pieces (0-110#). LTG Duration 03/07/20 Three Impairment Pain with functional activities due to R hand/wrist weakness. Short Term Goal (STG) Pt will be able to cook, cut his food, bathe, and perform toileting activities without difficulty or pain. STG Duration 01/17/20 Retirement Goal (LTG) Regain strength in R hand to work on home project ( restoring a car). LTG Duration 03/07/20 Two Impairment Decreased R thumb and wrist AROM Short Term Goal (STG) Pt will be able to perform the motions of flipping food and will be able to feed self without difficulty or pain. 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 LTG Duration 03/07/20 One Impairment Lacks appropriate self care HEP. Short Term Goal (STG) Pt will be on a self care HEP of initial R hand/wrist strengthening exercises. STG Duration 11/22/19 Retirement Goal (LTG) Pt will be independent with a self care HEP. LTG Duration 03/07/20 Assessment Summary Assessment Pt presents with instability of the R thumb MCP jt due to sprain/rupture of the proximal ulnar collateral ligament. He is limited with functional use of his R dominant had due to pain at the thumb MCP jt with most all functional use. I would recommend a consult with a hand specialist for consultation due to the physical requirement needed of his hands for his job. He could benefit from assessment by a hand specialist to also give recommendations on a thumb splint that he could possibly wear while at work. The pt will benefit from skilled physical therapy for a course of rehabilitation for thumb care and strengthening exercises with placement on a HEP for self care. It should be noted that the pt is planning on having a planned inguinal repair surgery 11/26/19 ; therefore therapy will be interrupted for 6-8 weeks while he recovers from the surgery; therefore focus will be on placing the pt onto a HEP to start. Physical Therapy Plan Frequency and Duration Frequency of Treatment 2x/Week Plan of Care Start Date 11/08/19 Plan of Care End Date 03/07/20 Therapeutic Interventions Therapeutic Interventions Home Exercise Program,Joint Mobilizations,Manual Therapy, Patient/Caregiver Education, Self-Care/Home Management,Soft Tissue Mobilization,Taping, Therapeutic Exercises Modalities Cold Pack/Ice Massage,Electric Stimulation,Hot Packs, Iontophoresis,Ultrasound Other Therapeutic Interventions Iontophoresis with 4 mg/mL of Dexamethasone with Sodium Phosphate. Next Visit Focus/Plan Next Note Type Treatment Note Next Visit Plan HEP for R thumb, wrist, finger strengthening and stabilization for self care after his 11/26/19 hernia repair surgery. On his return after his surgery, continue R thumb /hand/wrist/elbow strengthening and stabilization & ROM exercises. Ending with CP. Plan of Care Dates Plan of Care Start Date 11/08/19 Plan of Care End Date 03/07/20 Electronically Signed by: Beverley Rosario, PT 11/08/19 1726 Please Sign and Return: I have reviewed this Plan of Care and certify that the skilled therapy services above are required to meet the patient?s needs. Physician Signature Date Printed Name and Credentials Clinical Instructor Signature Printed Name and Credentials
--- NOTE | 2019-12-13 09:15 | PT-OP ANOTE ---
Addendum entered and electronically signed by Angella Macario, TYRONE 12/13/19 16:16: Front office noted pt cancelled appt 12/11/19 via Tele[employer]. Original Note: Pt DNS for appt today.
--- NOTE | 2019-12-20 13:04 | PT-OP ANOTE ---
Pt DNS for appt. Contacted pt by phone. Pt reports he has a lot going on right now and that he won't be able to participate in physical therapy. He states overall his thumb ROM and strength is better and that he's hoping it will continue to improve. Pt is agreeable to discharge from therapy.
--- NOTE | 2019-12-20 13:10 | PT.OPDS ---
Current Diagnoses Muscle weakness (generalized) (11/08/19) Ulnar collateral ligament sprain of unspecified elbow, initial encounter (11/08/19) Visit Care Team Role Provider Type Eduardo Hastings DO Attending Provider Physician Primary Care Provider Referring Provider Specialty: [facility] Address: [address] [place] [address], [facility] Email: [email or web address] Visit Number Visit Number 1 Discharge Summary PT-OP-B Current Condition Start: 11/08/19 08:09 Freq: Status: Active Protocol: Document 11/08/19 09:50 LRN (Rec: 11/08/19 10:48 LRN [id number]) Current Condition History of Current Condition Onset Date 1.5 months ago History of Current Condition R MCP jt pain. Pt is R handed . 1.5 months ago was trying to rehome his dog and was trying to break up a dog fight and he grabbed with his R hand and felt a pop/snap/ crunch in his thumb and did it twice in a row. 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 Pain is Distal of the 1st phalanx of R thumb Prior Treatments and Tests MRI and was found to have ruptured a tendon and ligament . (per report: Sprain/rupture of the proximal ulnar collateral ligament at the 1st MCP joint Extensor pollicis longus strain. No complete rupture. Adjacent soft tissue edema) Future Testing and Treatments Planned MD follow up visit is March 2020 Treatment Goals Patient/Caregiver Goals Pt goal is to get 100% better to be able to grasp/lift 0-110 # piece of steel. 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 Dress (pull up pants and underwear and button a shirt) without difficulty and pain. Regain strength in hand to work on home project ( restoring a car). Cooking/cutting/flipping food without difficulty or pain. difficulty dressing, bathing, toileting, feeding self. 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 Baseline Function- Recreation/Hobbies Restores cars. Baseline Function- Other Painfree dressing, bathing, toileting, feeding self. 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 Dress (pull up pants and underwear and button a shirt) without difficulty and pain. Regain strength in hand to work on home project ( restoring a car). Cooking/cutting/flipping food without difficulty or pain. difficulty dressing, bathing, toileting, feeding self. Functional Limitations- Work/School Work place is trying to accommodate for his dysfunction for now. Functional Limitations- Recreation/ Not able to restore his car. Hobbies Personal Factors Other Personal Factors That May Effect Per pt (verbally and with Therapy/Recovery intake form), Inguinal repair surgery scheduled 11/26/19. Controlled HBP, Depression, Neck pain, Memory loss. Loss of spouse 06/2019. PT-OP-C Subjective Start: 11/08/19 08:09 Freq: Status: Active Protocol: Document 11/08/19 09:50 LRN (Rec: 11/08/19 10:48 LRN [id number]) Patient Questionnaires Quick Dash- Upper Extremity Quick Dash UE Score 57.5 (one question unanswered) Quick Dash UE Impairment 40 to 59% Impaired (Score 40- 59) OP-PT Pain Assessment Location R thumb at MCP jt Pain Location Details R thumb @, & adjacent areas of MCP jt (verbally 9/10 at worst). Intensity 6 Scale Used Numeric (0 - 10) Description Aching,Dull,Sharp,Shooting Description- Other Constant dull ache, sharp/ shooting when hitting it Frequency Constant Pain Aggravating Factors Changing Position,ADL's, Activity,Exercise,Lifting Pain Alleviating Factors Cold,Heat,Medication Other Pain Alleviating Factors Tylenol Comments Pain Comments Tender around the R MCP jt. PT-OP-H Neuro Start: 11/08/19 08:09 Freq: Status: Active Protocol: Document 11/08/19 09:50 LRN (Rec: 11/08/19 16:34 LRN [id number]) Sensation Evaluation Gross Sensation Gross Sensation WNL PT-OP-J Posture/Palpation/Skin Start: 11/08/19 08:09 Freq: Status: Active Protocol: Document 11/08/19 09:50 LRN (Rec: 11/08/19 10:48 LRN [id number]) Posture Evaluation Position R thumb Evaluation View Anterior Comments Posture Comments See below for R MCP jt. R thumb IP joint shows valgus protrusion on the ulnar side. Palpation Assessment Location R MCP jt Palpation Location R thumb MCP jt Palpation Findings Tenderness Palpation Details 2nd phalanx proximally is displaced in the palmar direction. Very tender at R thumb IP joint. Tender with palpation at R thumb IP jt ulnar side. Tender radial side of R thumb MCP jt. PT-OP-K Range of Motion Start: 11/08/19 08:09 Freq: Status: Active Protocol: Document 11/08/19 09:50 LRN (Rec: 11/08/19 16:34 LRN [id number]) Wrist Goniometric Range of Motion Wrist Right Wrist ROM WFL No Flexion Active (degrees) 60 Extension Active (degrees) 58 Ulnar Deviation Active (degrees) 29 Radial Deviation Active (degrees) 22 Left Wrist ROM WFL Yes Flexion Active (degrees) 64 Extension Active (degrees) 74 Ulnar Deviation Active (degrees) 40 Radial Deviation Active (degrees) 34 Thumb Goniometric Range of Motion Thumb Right Thumb ROM WFL No MCP Flexion Active (degrees) 54 MCP Extension Active (0 degrees) 0 H IP Flexion Active (degrees) 50 CMC Extension Active (degrees) 36 Left Thumb ROM WFL Yes MCP Flexion Active (degrees) 62 MCP Extension Active (0 degrees) 0 H IP Flexion Active (degrees) 70 IP Extension Active (degrees) 0 CMC Extension Active (degrees) 60 Thumb ROM Limitations Thumb Range of Motion Limitations Pain Comments R thumb: Opposition to 5th digit base: Lacks 2.5 cm. Thumb AB: 36 degs right; 54 degs left PT-OP-L Special Tests Start: 11/08/19 08:09 Freq: Status: Active Protocol: Document 11/08/19 09:50 LRN (Rec: 11/08/19 16:34 LRN [id number]) Special Tests Wrist/Hand Special Tests Edilberto's Test Results R thumb: Positive Comments Indicates De Quervain's tendonitis, from extensor pollicis brevis and abductor pollicis longus. PT-OP-M Strength Start: 11/08/19 08:09 Freq: Status: Active Protocol: Document 11/08/19 09:50 LRN (Rec: 11/08/19 10:48 LRN [id number]) Wrist Strength Wrist Manual Muscle Testing Right Comments Generally 5/5. Left Flexion (C7) 5 Normal Extension (C6) 5 Normal Ulnar Deviation 5 Normal Comments Strength tested without pressure on the thumb. RD was deferred due to pain with pressure near the radial side. Finger/Thumb Strength Finger Manual Muscle Testing Left Thumb Comments Generally 5/5. Right Thumb Comments Deferred due to pain at MCP joint. Hand Clamp Carrier Operator/Pinch Strength Hand Dominance Hand Dominance Right Hand Strength Right Clamp Carrier Operator (lbs) 20 Comments Gripping dynomometer with pressure on the mid 2nd phalanx to simulate positioning for his job. Left Clamp Carrier Operator (lbs) 60 PT-OP-T Assessment and Plan Start: 11/08/19 08:09 Freq: Status: Active Protocol: Document 12/20/19 13:06 LRN (Rec: 12/20/19 13:10 LRN [id number]) Physical Therapy Assessment Goals Four Impairment Decreased Clamp Carrier Operator strength (in lbs: Right: 20, 20, 20; Left: 60, 60, 60) Short Term Goal (STG) (Gripping dynomometer with pressure on the mid 2nd phalanx to simulate positioning for his job.) Improve Clamp Carrier Operator strength by 20#, and will be able to dress ( pull up pants and underwear and button a shirt) without difficulty and pain. STG Duration 01/17/20 (12/20/19: Pt was unavailable for final assessment). Show Card Writer Goal (LTG) Pt will be able to return to prior level of function of grasping/lifting steel pieces (0-110#). LTG Duration 03/07/20 (12/20/19: Pt was unavailable for final assessment). Three Impairment Pain with functional activities due to R hand/wrist weakness. Short Term Goal (STG) Pt will be able to cook, cut his food, bathe, and perform toileting activities without difficulty or pain. STG Duration 01/17/20 (12/20/19: Pt was unavailable for final assessment). Fdc Goal (LTG) Regain strength in R hand to work on home project ( restoring a car). LTG Duration 03/07/20 (12/20/19: Pt was unavailable for final assessment). Two Impairment Decreased R thumb and wrist AROM Short Term Goal (STG) Pt will be able to perform the motions of flipping food and will be able to feed self without difficulty or pain. STG Duration 01/17/20 (12/20/19: Pt was unavailable for final assessment). 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 LTG Duration 03/07/20 (12/20/19: Pt was unavailable for final assessment). One Impairment Lacks appropriate self care HEP. Short Term Goal (STG) Pt will be on a self care HEP of initial R hand/wrist strengthening exercises. STG Duration 11/22/19 (12/20/19: Pt was unavailable for final assessment). Fdc Goal (LTG) Pt will be independent with a self care HEP. LTG Duration 03/07/20 (12/20/19: Pt was unavailable for final assessment). Assessment Summary Assessment Pt was seen for his initial evaluation and failed to show for his first follow up appointment. Per phone conversation he reports his thumb ROM and strength has gotten better but the right hand is still weaker than the left. He reports too much going on and would like to discharge from therapy. Pt was unavailable for final assessment. Physical Therapy Plan Discharge Physical Therapy Discharge Reasons Patient Request
== END 2020-01-06 13:07 ==
LOC: PHYS 09:28
PROVIDERS: PCP Family Medicine; Referring Provider Family Medicine; Visit Provider Family Medicine
DX: S53.449A Ulnar collateral ligament sprain of unspecified elbow, initial encounter (principal); M62.81 Muscle weakness (generalized)
CPT/HCPCS: 97162

== ENCOUNTER → 2019-11-23 08:15 | Outpatient (CLI) | payer OTHER, SELFPAY ==
[2019-11-25 13:44] LABS: COVID19 Sendout Not Detected (Not Detect)
== END ==
PROVIDERS: PCP Family Medicine; Visit Provider Physician Assistant
DX: Z11.59 Encounter for screening for other viral diseases (principal)
CPT/HCPCS: 87635

== ENCOUNTER 2019-11-26 07:52 | Day surgery (SDC) | payer OTHER, SELFPAY ==
[2019-11-20 15:14] VITALS: BMI 29.7
[2019-11-26] VITALS (11 sets, daily range): BP systolic 126–153; BP diastolic 75–100; PULSE 74–88; RESP 16–30; TEMP 36.3–37.1; O2SAT 95–100; BMI 28.9
--- NOTE | 2019-11-26 08:25 | PM.PREOP ---
Pre-operative Note COVID-19 COVID-19 status: Negative Interval Note History & Physical reviewed/Exam performed by Physician: Yes Changes to H&P: No
[2019-11-26] MEDS: LACTATED RINGERS 1,000 ML 42 ML IV ×2 (08:36→10:01)
[2019-11-26] MEDS: CEFAZOLIN 2 GM/100 ML FROZ.PIGGY IV (08:46)
--- NOTE | 2019-11-26 09:07 | SUR.OPER ---
Supine on padded OR bed, head on pillow, arms secured on padded arm boards at <90 degrees abduction, legs uncrossed, safety belt at thigh, tape over blanket over lower legs.
[2019-11-26] MEDS: BUPIVACAINE 0.25% (PF) VIAL 30 ML INJ (09:11)
--- NOTE | 2019-11-26 10:22 | PM.OP.1 ---
Operative Date/Time/Diagnoses Date of procedure: 11/26/19 Time of procedure: 10:22 Pre-op diagnosis: left inguinal hernia Post-op diagnosis: same Procedure & Clinicians Procedure: left open inguinal hernia repair with mesh Same procedure as scheduled: Yes Indications: symptomatic left inguinal hernia Surgeon: Hieu Childress Yes if Unassisted: Yes Anesthesia Type: General Operative Notes Findings: direct floor defect and indirect defect Specimen(s): none sent Estimated Blood Loss (mL): 20 Procedure in detail: The patient was placed supine on the table and bilateral lower extremity compression devices were applied. Anesthesia was induced they were intubated with an LMA and received 2g of Ancef. A time-out was performed. They were prepped and draped in sterile fashion. The left external inguinal ring and the anterior superior iliac crest were identified and marked. 1 finger breath above the inguinal ligament the skin was infiltrated with 0.25% bupivacaine. The skin incision was made here and the subcutaneous tissues were divided with electrocautery exposing the external oblique aponeurosis which was then opened along the direction of its fibers. Using blunt dissection the internal oblique aporneurosis was from the external oblique upper leaflet to identify the iliohypogastric nerve. Using a kittner the cord was carefully dissected away from the inguinal canal adjacent to the pubic tubercle. The cord including the vas deferens, testicular bloody supply, ilioguinal and genital nerve were encircled with a Kanwal drain. A direct floor defect was identified and it was reduced into the abdomen and the internal oblique aporneuorsis was approximated to the inguinal ligament with Vircyl suture to reapproximate the floor. The cremasteric fibers surrounding the cord were divided using electrocautery adjacent to the internal ring.. The vas deferens and the testicular vessels were preserved and protected. There was an indirect hernia on the anterior medial aspect of the cord which was skeletonized away from the vas deferens and testicular blood supply. The indirect hernia was skeletonized back to the internal ring and reduced spontaneously into the abdomen. I selected a 7x 15 cm lightweight Pro Loop hernia mesh. The inferior medial aspect of the mesh was anchored to insertion of the rectus muscle to the pubic tubercle such that there was approximately 2 cm of tubercle overlap with 0 Prolene and then was run continuously along the inferior edge of the mesh to the shelving edge of the inguinal ligament. Interrupted 3 0 Vicryl suture was used to anchor the superior aspect of the mesh to the conjoined tendon in several places. The tails were then reapproximated loosely around the spermatic cord. The tails of the mesh were then tucked under the external oblique aponeurosis. The repair was checked for hemostasis. The wound was irrigated with sterile saline. The external oblique aponeurosis was reapproximated in a running fashion using 3 0 Vicryl. The subcutaneous tissues were reapproximated with 3 0 Vicryl skin closed with 4 0 Monocryl followed by the application of Dermabond. At the end of the operation I ensured that both testicles were within the scrotum. The sponge instrument count at the end operation was correct. The patient emerged from anesthesia was extubated and transferred to the postoperative care unit in stable condition. A total of 30 ml of of 0.25% bupivicaine was used to infiltrate the skin. Post-operative Condition: stable Disposition: same day surgery
[2019-11-26] MEDS: HYDROMORPHONE 2 MG INJ IV ×3 (10:25→10:41)
--- NOTE | 2019-11-26 10:30 | SUR.PHASEII ---
1023 Pt arrived to PACU awake, drowsy, shaking, moaning, stating ough, over and over.
[2019-11-26] MEDS: LORazepam 2 MG/ML INJ 1 MG IV (10:45)
[2019-11-26] MEDS: KETOROLAC 30 MG/ML VIAL IV (10:53)
[2019-11-26] MEDS: OXYCODONE/ACETAMINOPHEN 5/325 TABLET 2 TAB PO (11:22)
--- NOTE | 2019-11-26 11:25 | SUR.PHASEI ---
Addendum entered by Rowena Peralta R.N. 11/26/19 11:51: in spite of pain level, pt repeatedly expressed appreciation and thanks for the care. Pt stated that the nano hugger helped him to feel much better and that his pain level was improving with the medications. Dr Conde and Dr. Clark both checked on the patient twice and provided additional Rx orders as warranted. Original Note: Pt has calmed down, resp unlabored, skin warm and dry, states that he is no longer 'freezing' and that not shivering helps reduce the pain. Occasionally moaning, Discussed pain scale with the patient. Currently rates the pain at 7 but the FLACC scale results in a '4'. He has continually ranked the pain higher than presentation. Has spoken several times about [place], his who reportedly in June. When asked if he remembered that, he shook his head yes and became tearful. Preparing to transfer to [facility] site [facility].
== END 2019-11-26 13:07 | disposition home or self-care (01) ==
PROVIDERS: PCP Family Medicine; Referring Provider Surgery; Visit Provider Surgery
PROC: (CPT 49505; principal; 2019-11-26 09:15)
DX: K40.90 Unilateral inguinal hernia, without obstruction or gangrene, not specified as recurrent (principal); F17.210 Nicotine dependence, cigarettes, uncomplicated; I10 Essential (primary) hypertension; G47.30 Sleep apnea, unspecified; K21.9 Gastro-esophageal reflux disease without esophagitis
CPT/HCPCS: 49505; C1781; J0690; J1100; J1170; J1885; J2060; J2405; J2704; J3010

== ENCOUNTER 2023-01-23 11:11 | Emergency (ER) | payer OTHER, SELFPAY ==
[2023-01-23 11:19] VITALS: BP 153/95; PULSE 95; RESP 20; TEMP 36.9; O2SAT 99; BMI 29.8
--- NOTE | 2023-01-23 11:23 | DI.RAD.S_ITS ---
PROCEDURE: XR TIBIA FUBULA RT 2V INDICATIONS: twisted, felt a pop and severe pain in R calf TECHNIQUE: 2 views of the tibia and fibula were acquired. COMPARISON: None. FINDINGS: Bones: No fractures or dislocations. No suspicious bony lesions. Soft tissues: No suspicious soft tissue calcifications or masses. IMPRESSION: No evidence acute bony abnormality. Dictated by: Mario Lewis M.D. on 01/23/2023 at 12:25 Approved by: Mario Lewis M.D. on 01/23/2023 at 12:25
[2023-01-23 13:30] VITALS: BP 137/93; PULSE 83; RESP 14; O2SAT 98
--- NOTE | 2023-01-23 13:57 | ED_ITS ---
HPI - Extremity Injury (Lower) <Rebecca Barillas PA-C - Last Filed: 01/31/23 13:16> General Chief Complaint: Extremity Injury, Lower Stated Complaint: both heard and felt loud pop on calf can notstand Time Seen by Provider: 01/23/23 13:03 Source: patient Mode of arrival: Wheelchair History of Present Illness HPI Narrative: 47-year-old male presents to the ED status post a right calf injury. Patient states that he was working on his car, misstepped and fell, causing severe pain in the right calf. Patient describes the pain as a severe Charley horse. Denies numbness, tingling, weakness. Related Data Home Medications Medication Instructions Recorded Confirmed acetaminophen 325 mg tablet 650 mg PO Q4HP PRN Pain (Scale 05/10/16 01/10/20 (Tylenol) Score 1-3) ##0 melatonin 5 mg tablet 5 mg PO HSP PRN Sleep ##0 05/10/16 01/10/20 naproxen sodium 220 mg capsule 220 mg PO BID PRN Pain (Scale 05/10/16 01/10/20 (Aleve) Score 1-3) ##0 calcium carbonate 200 mg calcium 1 tab PO PRN PRN Acid Reflux 12/27/17 01/10/20 (500 mg) chewable tablet (Tums) Previous Rx's Medication Instructions Recorded lisinopril 10 mg tablet 10 mg PO DAILY #90 tabs 10/25/19 acetaminophen 325 mg capsule 650 mg (2 x 325 mg) PO QID PRN 11/26/19 (Tylenol) pain #60 caps oxycodone 5 mg tablet 5 mg PO Q6H PRN pain #30 tabs 11/26/19 Allergies Allergy/AdvReac Type Severity Reaction Status Date / Time bupropion [From WELLBUTRIN] Allergy Unknown MIGRAINE Verified 12/11/19 09:05 Review of Systems <Rebecca Barillas PA-C - Last Filed: 01/31/23 13:16> Constitutional Constitutional: Denies chills, Denies fatigue, Denies fever(s), Denies frequent falls, Denies lethargy and Denies weakness Eyes Eyes: Denies change in vision, Denies eye discharge, Denies irritation and Denies loss of vision ENT Ears, Nose, Mouth, and Throat: Denies change in voice, Denies dizziness, Denies neck pain, Denies sore throat and Denies throat swelling Cardiovascular Cardiovascular: Denies chest pain, Denies irregular heart rhythm, Denies lightheadedness, Denies palpitations, Denies dyspnea, Denies dyspnea on exertion and Denies orthopnea Respiratory Respiratory: Denies cough, Denies dyspnea, Denies dyspnea on exertion and Denies wheezing Gastrointestinal Gastrointestinal: Denies abdominal pain, Denies change in bowel habits, Denies diarrhea, Denies nausea and Denies vomiting Musculoskeletal Musculoskeletal: Denies neck pain and Denies numbness Comments: Right calf pain Integumentary/Breasts Skin/Breast: Denies pruritus, Denies erythema, Denies rash and Denies wounds Neurologic Neurologic: Denies behavioral changes, Denies confusion, Denies dizziness, Denies frequent falls, Denies loss of vision, Denies numbness and Denies weakness Psychiatric Psychiatric: Denies anxiety, Denies behavioral changes, Denies confusion, Denies depression, Denies homicidal ideation and Denies suicidal ideation Endocrine Endocrine: Denies fatigue, Denies flushing and Denies palpitations Hematologic/Lymphatic Hematologic/Lymphatic: Denies easy bruising Allergic/Immunologic Allergic/Immunologic: Denies urticaria, Denies throat swelling and Denies wheezing Patient History <Rebecca Barillas PA-C - Last Filed: 01/31/23 13:16> Medical History HTN (hypertension) Ulnar collateral ligament sprain Hyperlipidemia Hyperglycemia External hemorrhoids Left inguinal hernia Sprain of right thumb Thumb pain Dysuria Sleep apnea (~1993) Post traumatic stress disorder (PTSD) (~2011) Depression (~2011) Brain damage (~2011) Restless leg syndrome (~2011) Migraines (~2011) Joint pain (~1999) Foot pain (~1993) Ankle pain (~1993) Chicken pox (~1981) Vertigo (~2011) Hearing loss (~1993) GERD (gastroesophageal reflux disease) (~1998) Hemorrhoid (~1998) GI bleeding (~2017) Diverticular disease (~2017) Low testosterone Surgical History Anesthesia Inguinal hernia, right (~10/2007) History of third molar tooth extraction Status post myringotomy with insertion of tube Status post tonsillectomy and adenoidectomy Family History Child Age: 14 Autistic disorder, active Grandfather Age: 94 Heart disease Mother Cancer Grandfather Diabetes mellitus Heart disease Hyperlipidemia Hypertension Grandmother Cancer Diabetes mellitus Social History marital status: household members: none occupational status: employed Smoking Status: Current every day smoker Tobacco: How many years used: 24 quit status: considering quitting alcohol intake: current substance use type: marijuana Smoking Status: Current every day smoker alcohol intake frequency: a few times a week Substance Use Type: marijuana Exam <Rebecca Bairllas PA-C - Last Filed: 01/31/23 13:16> Narrative Exam Narrative: Const General:?cooperative, healthy appearing and comfortable HENNH Head:?normal to inspection Ears:?hearing grossly normal bilaterally Nose:?external nose normal Face and sinus:?normal facial exam and sinuses nontender Mouth:?oral mucosae normal Throat:?posterior oropharynx normal Eyes General:?appearance normal, both eyes and all related structures Neck Neck:?normal visual inspection and no lymphadenopathy noted Resp Effort & Inspection:?normal respiratory effort Auscultation:?clear to auscultation bilaterally Cardio Rate:?regular rate Rhythm:?regular rhythm Musculoskeletal There is tenderness to palpation of the right calf muscle. Mcleod test negative. Patient is unable to walk comfortably due to the pain. Patient is neurovascularly intact. Neuro General:?patient alert, patient awake and patient oriented x3 Initial Vital Signs Initial Vital Signs: Vital Signs Temperature 98.4 F 01/23/23 11:19 Pulse Rate 95 H 01/23/23 11:19 Respiratory Rate 20 01/23/23 11:19 Blood Pressure 153/95 H 01/23/23 11:19 Pulse Oximetry 99 01/23/23 11:19 Oxygen Delivery Method Room Air 01/23/23 11:19 <Marisela Story DO - Last Filed: 01/31/23 22:43> Initial Vital Signs Initial Vital Signs: Vital Signs Temperature 98.4 F 01/23/23 11:19 Pulse Rate 95 H 01/23/23 11:19 Respiratory Rate 20 01/23/23 11:19 Blood Pressure 153/95 H 01/23/23 11:19 Pulse Oximetry 99 01/23/23 11:19 Oxygen Delivery Method Room Air 01/23/23 11:19 Course <Rebecca Barillas PA-C - Last Filed: 01/31/23 13:16> Orders Ordered: Discontinued Medications Lidocaine (Lidocaine Patch 1 Each Adh..Patch) 1 each TOP NOW ONE Stop: 01/23/23 13:17 Vital Signs Vital signs: Vital Signs - 8 hr 01/23/23 11:19 01/23/23 13:30 Temperature 98.4 F Pulse Rate 95 H 83 Respiratory Rate 20 14 Blood Pressure 153/95 H 137/93 H Pulse Oximetry 99 98 Oxygen Delivery Method Room Air Room Air <Marisela Story DO - Last Filed: 01/31/23 22:43> Orders Ordered: Discontinued Medications Lidocaine (Lidocaine Patch 1 Each Adh..Patch) 1 each TOP NOW ONE Stop: 01/23/23 13:17 Vital Signs Vital signs: Vital Signs - 8 hr 01/23/23 11:19 01/23/23 13:30 Temperature 98.4 F Pulse Rate 95 H 83 Respiratory Rate 20 14 Blood Pressure 153/95 H 137/93 H Pulse Oximetry 99 98 Oxygen Delivery Method Room Air Room Air MDM - Extremity Injury (Lower) <Rebecca Barillas PA-C - Last Filed: 01/31/23 13:16> MDM Narrative Medical decision making narrative: 47-year-old male presents to the ED status post a right calf injury. Concern for fracture/dislocation versus musculoskeletal sprain/strain. Obtained a tib- fib x-ray with no acute findings. Patient's symptoms are most likely due to a musculoskeletal sprain/strain of the calf muscle. Achilles tendon intact per Mcleod test. Recommend rest, hydration, lidocaine patches, Tylenol, ibuprofen, heat packs for healing. Recommend follow-up with PCP. ED return precautions discussed with patient. Patient verbalized understanding. Medical records reviewed: Yes Discharge Plan Departure Patient Disposition: Home Clinical Impression: Strain of right calf muscle Instructions: DI for Calf Muscle Strain Activity Restrictions/Additional Instructions: You were evaluated in the ED today for right-sided calf pain. Your x-ray did not show any fractures or dislocations. Your symptoms are likely due to a musculoskeletal sprain/strain of your calf muscle. You may apply lidocaine patches, take Tylenol/ibuprofen for the pain. Please follow-up with your PCP for further evaluation. Return to the ED if your worsening symptoms, numbness, tingling, weakness. Prescriptions: No Action acetaminophen [Tylenol] 325 mg Tablet 650 mg PO Q4HP PRN (Reason: Pain (Scale Score 1-3)) Qty: 0 naproxen sodium [Aleve] 220 MG capsule 220 mg PO BID PRN (Reason: Pain (Scale Score 1-3)) Qty: 0 melatonin 5 MG tablet 5 mg PO HSP PRN (Reason: Sleep) Qty: 0 lisinopril 10 mg tablet 10 mg PO DAILY Qty: 90 3RF oxycodone 5 mg tablet 5 mg PO Q6H PRN (Reason: pain) Qty: 30 0RF acetaminophen [Tylenol] 325 mg capsule 650 mg PO QID PRN (Reason: pain) Qty: 60 0RF calcium carbonate [Tums] 200 mg calcium (500 mg) Tablet,Chewable 1 tab PO PRN PRN (Reason: Acid Reflux) Referrals: Eduardo Hastings DO [Primary Care Provider] - Stand Alone Forms: Patient Portal/API, Work Release Note ED Sign-out <Marisela Story DO - Last Filed: 01/31/23 22:43> Cosign ED Attending Inocenteature Attestation: I was immediately available in the department for consultation.
== END 2023-01-23 13:32 | disposition home or self-care (01) ==
PROVIDERS: Emergency Provider Student in an Organized Health Care Education/Training Program; PCP Family Medicine
DX: S86.811A Strain of other muscle(s) and tendon(s) at lower leg level, right leg, initial encounter (principal); W18.30XA Fall on same level, unspecified, initial encounter
CPT/HCPCS: 73590; 99281; 99283